=== PATIENT | female | born 1960 | race Caucasian/White ===

== ENCOUNTER 2016-06-01 05:20 | Emergency (ER) ==
--- NOTE | 2016-06-01 05:51 | PROVIDER DOCUMENTATION ---
HPI-Abdominal Pain/GI Problem - General Source: patient - History of Present Illness-ABD Abdominal Pain Onset Location: reports: generalized abdomen Pain Radiation: reports: no radiation Quality of Pain: reports: aching Severity in ED: reports: mild Onset/Duration: reports: 24 hours ago Timing: reports: still present Activities at Onset: reports: none Exposure to sick contacts?: No Modifying Factors: improves with: nothing Associated Symptoms: reports: muscle aches, nausea Last BM: unsure Emesis Description: reports: none Bruising or Bleeding Gums?: No <Chinmay Syed - Last Filed: 06/01/16 05:49> - General Source: patient <Luz Villeda - Last Filed: 06/01/16 09:14> <Adrian Torres - Last Filed: 06/01/16 09:21> - General Chief Complaint: Abdominal Pain Stated Complaint: STOMACH PAIN Time Seen by Provider: 06/01/16 05:49 Allergies/Adverse Reactions: Patient Allergies Allergy/AdvReac Type Severity Reaction Status Date / Time codeine Allergy SWELLING Verified 06/01/16 05:35 Home Medications: Home Medication List Medication Instructions Recorded Confirmed Last Taken Type Lisinopril 20 mg PO DAILY 12/08/15 12/08/15 1 Day Ago History Citalopram [Celexa] 06/01/16 1 Day Ago History Divalproex [Depakote] DAILY 06/01/16 1 Day Ago History Sulfamethoxazole/Tmp D.s. [Septra 1 each PO BID #20 tablet 06/01/16 Unknown Rx Ds] Tramadol [Ultram] 50 mg PO Q6H PRN PRN #14 tablet 06/01/16 Unknown Rx Review of Systems - Adult - REVIEW OF SYSTEMS - ADULT Constitutional: reports: no symptoms reported Eyes: reports: no symptoms reported Ears, Nose, Mouth & Throat: reports: no symptoms reported Cardiovascular: reports: no symptoms reported Respiratory: reports: no symptoms reported Gastrointestinal: reports: no symptoms reported Genitourinary: reports: no symptoms reported Musculoskeletal: reports: no symptoms reported Integumentary: reports: no symptoms reported Neurological: reports: no symptoms reported Psychiatric: reports: no symptoms reported Endocrine: reports: no symptoms reported Hematologic/Lymphatic: reports: no symptoms reported Allergic/Immunologic: reports: no symptoms reported All Other Systems: Reviewed and Negative <Chinmay Syed - Last Filed: 06/01/16 05:49> - REVIEW OF SYSTEMS - ADULT Constitutional: reports: no symptoms reported Eyes: reports: no symptoms reported Ears, Nose, Mouth & Throat: reports: no symptoms reported Cardiovascular: reports: no symptoms reported Respiratory: reports: no symptoms reported Gastrointestinal: reports: no symptoms reported Genitourinary: reports: no symptoms reported Musculoskeletal: reports: no symptoms reported Integumentary: reports: no symptoms reported Neurological: reports: no symptoms reported Psychiatric: reports: no symptoms reported Endocrine: reports: no symptoms reported Hematologic/Lymphatic: reports: no symptoms reported Allergic/Immunologic: reports: no symptoms reported All Other Systems: Reviewed and Negative <Luz Villeda - Last Filed: 06/01/16 09:14> Past History - Adult - PAST MEDICAL HISTORY-ADULT Review of Records: reports: Old Records Reviewed, Nursing Assessment Review, Medications Reviewed, Social history reviewed & non-contributory. Major Childhood Illnesses: reports: denies history Cardiovascular: reports: HTN Respiratory: reports: denies history Gastrointestinal: reports: denies history Obstetrical/Gynecological: reports: uterine/ovarian cancer Genitourinary: reports: denies history Musculoskeletal: reports: denies history Neurological: reports: denies history Psychiatric: reports: anxiety, depression Endocrine/Immune: reports: denies history Other Conditions: reports: denies history - PRIOR SURGERIES/PROCEDURES Surgical/Procedure History: reports: hysterectomy, joint replacement, other ( masectomy) - IMMUNIZATION STATUS Childhood Immunizations: See Nurse Assessment Flu Vaccine: See Nurse Assessment - FAMILY HISTORY Family History: reviewed, not pertinent <Chinmay Syed - Last Filed: 06/01/16 05:49> - PAST MEDICAL HISTORY-ADULT Review of Records: reports: Nursing Assessment Review <Luz Villeda - Last Filed: 06/01/16 09:14> Physical Exam-General - PHYSICAL EXAM-ADULT Initial Vital Signs Reviewed: Yes - CONSTITUTIONAL General Appearance: appears well - EYES Eyes: PERRL/EOMI - HEAD, EARS, NOSE, MOUTH & THROAT HENMT: normocephalic/atraumatic - NECK Neck: non-tender - RESPIRATORY Respiratory: chest non-tender - CARDIOVASCULAR Cardiovascular: normal peripheral pulses - CHEST (BREASTS) Chest/Breast: deferred - GASTROINTESTINAL (ABDOMEN) Abdominal Exam: abnormal bowel sounds, distended, tenderness - LYMPHATIC Lymphatic: no adenopathy - MUSCULOSKELETAL Back Exam: normal inspection Extremity: normal range of motion - SKIN Integumentary: normal color - NEUROLOGIC Neurologic: bale coverer II-XII nml as tested - PSYCHIATRIC Psych/Mental Status: normal mood/affect <Chinmay Syed - Last Filed: 06/01/16 05:49> - PHYSICAL EXAM-ADULT Initial Vital Signs Reviewed: Yes <Luz Villeda - Last Filed: 06/01/16 09:14> Progress - PLAN OF CARE/RESULTS Progress/Plan/Lab Results: Laboratory Tests 06/01/16 06/01/16 06/01/16 05:48 05:48 08:28 WBC 8.64 RBC 4.62 Hgb 14.3 Hct 42.9 MCV 92.9 MCH 31.0 MCHC 33.3 RDW Std Deviation 13.4 Plt Count 178 MPV 9.8 Immature Gran % (Auto) 0.2 Neut % (Auto) 49.1 Lymph % (Auto) 38.8 Hart % (Auto) 10.5 H Eos % (Auto) 0.9 Baso % (Auto) 0.5 Immature Gran # (Auto) 0.02 Neut # (Auto) 4.24 Lymph # (Auto) 3.35 Hart # (Auto) 0.91 H Eos # (Auto) 0.08 Baso # (Auto) 0.04 Sodium 138 Potassium 3.2 L Chloride 99 Carbon Dioxide 23 L Anion Gap 16 BUN 11 Creatinine 1.1 H Estimated GFR/1.73 m2 52 BUN/Creatinine Ratio 10 Glucose 158 H Calculated Osmolality 278 Calcium 9.1 Total Bilirubin 1.10 H AST 84 H ALT 87 H Alkaline Phosphatase 58 Total Protein 7.5 Albumin 4.0 Globulin 4.0 Albumin/Globulin Ratio 1.0 Amylase 69 Lipase 25 Urine Source CLEAN CATCH Urine Color MORGAN Urine Clarity CLEAR Urine pH 7.0 Ur Specific [place] 1.000 Urine Protein 1+(30 mg/dL) A Urine Ketones NEGATIVE Urine Blood 1+ A Urine Nitrite POSITIVE A Urine Bilirubin NEGATIVE Urine Urobilinogen 3+(8 mg/dL) Urine Microscopic RBC <10 Urine WBC 1+ A Urine Microscopic WBC 10-20 A Ur Epithelial Cells >10 A Urine Glucose NEGATIVE Orders Category Date Time Status Saline Loc DIRECTED Care 06/01/16 05:37 Active NPO Diet 06/01/16 05:[address] ABD/PELVIS W/ IV CONT ONLY [CT] Stat Exams 06/01/16 05:51 Draft AMYLASE [CHEM] Stat Lab 06/01/16 05:48 Completed CBC WITH ELECTRONIC DIFF [HEME] Stat Lab 06/01/16 05:48 Completed COMPREHENSIVE METABOLIC PANEL [CHEM] Stat Lab 06/01/16 05:48 Completed LIPASE [CHEM] Stat Lab 06/01/16 05:[address] W/POSS RFLX CULT [URINALYSIS] Stat Lab 06/01/16 08:28 Completed Vital Signs - 24 hr 06/01/16 05:32 Temperature 98.4 F Pulse Rate 88 Respiratory 18 Rate Blood Pressure 121/76 O2 Sat by Pulse 96 Oximetry - CT/MRI 1 CT Study: Abdomen (W/ IV contrast only), Pelvis Impression: Abnormal (Small superficial subcutaneous collection/abscess at the anterior right lower abdominal body wall. overlying celulitis. Small left renal stone. left renal cortical scarring. (Javy Monzon) <Luz Villeda - Last Filed: 06/01/16 09:14> Departure <Chinmay Syed - Last Filed: 06/01/16 05:49> <Luz Villeda - Last Filed: 06/01/16 09:14> - Departure Time of Disposition Order: 09:19 Certified Medical Emergency: Emergent <Adrian Torres - Last Filed: 06/01/16 09:21> - Departure DIAGNOSIS: Hematoma of abdominal wall Qualifiers: Encounter type: initial encounter Qualified Code(s): S30.1XXA - Contusion of abdominal wall, initial encounter UTI (urinary tract infection) Qualifiers: Urinary tract infection type: site unspecified Hematuria presence: without hematuria Qualified Code(s): N39.0 - Urinary tract infection, site not specified Disposition: HOME 01 Condition: Stable Additional Instructions: ED Follow Up Instructions: You have been treated by a care provider in the Emergency Department. These instructions are being provided to you so you can have an understanding of how to care for yourself upon discharge. Upon discharge from the Emergency Department, you are responsible for making arrangements for follow-up care by a physician of your choice. Take all prescribed medications as directed. Return to the Emergency Department immediately for any new or worsening symptoms. You may call the Physician Referral phone number at [phone] to obtain a list of Physicians who are taking new patients. Prescriptions: Tramadol [Ultram] 50 mg PO Q6H PRN PRN #14 tablet PRN Reason: Pain Sulfamethoxazole/Tmp D.s. [Septra Ds] 1 each PO BID #20 tablet Referrals: Ranjeet Egan [Primary Care Provider] - Instructions: Tramadol tablets, Urinary Tract Infection, [id number], Sulfamethoxazole; Trimethoprim, SMX-TMP tablets Attestation - Scribe Verification/Attestation Scribe:: Luz Villeda Acting as Scribe for:: Adrian Torres Scribe documention review:: This chart was documented by a scribe and accurately reflects the service the provider performed and the decisions made by the provider. <Luz Villeda - Last Filed: 06/01/16 09:14> Physician Attestation
[2016-06-01 05:54] LABS: MANUAL DIFF NEEDED? NO
[2016-06-01 05:57] LABS: BASO% 0.5 % (0.0-0.8); EOS# 0.08 X1000 (0.0-0.7); EOS% 0.9 % (0.0-10.0); HEMATOCRIT 42.9 % (37.0-47.0); HEMOGLOBIN 14.3 g/dL (12.0-16.0); IMM GRAN# 0.02 X1000 (0.0-0.04); IMM GRAN% 0.2 % (0.0-0.5); LYMPH# 3.35 X1000 (1.2-3.4); LYMPH% 38.8 % (20.5-51.1); MCHC 33.3 g/dL (33-37); MCV 92.9 FL (81-99); MONO# 0.91 X1000 (0.11-0.59); MONO% 10.5 % (1.7-9.3); MPV 9.8 FL (7.4-10.4); NEUT% 49.1 % (42.2-75.2); PLT 178 X1000 (130-400); RBC 4.62 XMIL (4.2-5.4)
[2016-06-01 06:18] LABS: CALCIUM 9.1 mg/dL (8.8-10.2); POTASSIUM 3.2 mmol/L (3.5-5.1); TOTAL BILIRUBIN 1.1 mg/dL (0.20-1.00); TOTAL PROTEIN 7.5 g/dL (6.3-8.3)
--- NOTE | 2016-06-01 08:02 | Diag Imaging Result Document ---
PROCEDURE NAME: CT ABD/PELVIS W/ IV CONT ONLY - 06/01/2016 CT ABDOMEN AND PELVIS WITH INTRAVENOUS CONTRAST: A CT dose reduction protocol was used. COMPARISON: None. FINDINGS: At the anterior right lower abdominal wall, there is a small area of subcutaneous fluid enhancement measuring 2.3 cm, with overlying skin thickening. The area in question is about 1 cm below the skin surface. The lung bases are clear and the heart size is normal. The liver, gallbladder, spleen, pancreas, and adrenals are normal. There is a small left renal cyst. There is also left renal cortical scarring and a probable small stone measuring about 2 mm. No obstruction. No bowel obstruction or inflammation. Uterus is absent. Urinary bladder and rectum are normal. Bony structures are intact. IMPRESSION: 1. Small superficial subcutaneous collection/abscess at the anterior right lower abdominal body wall. Overlying cellulitis. 2. Small left renal stone. Left renal cortical scarring. [facility]
[2016-06-01 08:38] LABS: URINE CULTURE PL NEEDED? NO; URINE SOURCE CLEAN CATCH
[2016-06-01 08:43] LABS: BILIRUBIN URINE NEGATIVE (NEGATIVE); BLOOD URINE 1+ (NEGATIVE); CLARITY CLEAR (CLEAR); GLUCOSE URINE NEGATIVE (NEGATIVE); LEUKOCYTES URINE 1+ (NEGATIVE); NITRITE URINE POSITIVE (NEGATIVE); PROTEIN URINE 1+(30 mg/dL) mg/dL (NEGATIVE)
[2016-06-01 09:01] LABS: COLOR AMBER; URINE EPITHELIAL CELLS >10 /HPF (<10); URINE RBC <10 /HPF (<10); UROBILINOGEN URINE 3+(8 mg/dL)
[2016-06-01 09:24] VITALS: BP 119/87
== END 2016-06-01 09:24 | disposition home or self-care (01) ==
LOC: P.ED 05:20
DX: S30.1XXA Contusion of abdominal wall, initial encounter (principal); N39.0 Urinary tract infection, site not specified; R10.9 Unspecified abdominal pain; I10 Essential (primary) hypertension; Z85.40 Personal history of malignant neoplasm of unspecified female genital organ; Z90.10 Acquired absence of unspecified breast and nipple; F41.9 Anxiety disorder, unspecified; F32.9 Major depressive disorder, single episode, unspecified; Z79.899 Other long term (current) drug therapy
CPT/HCPCS: 74177; 80053; 81001; 82150; 83690; 85025